=== PATIENT | male | born 1970 | race Hispanic/Latino ===

== ENCOUNTER 2021-09-24 08:04 | Emergency (ER) | payer OTHER ==
[2021-09-24] MEDS ORDERED: ONDANSETRON 4 MG/2 ML INJ IV ONE (08:48)
[2021-09-24] MEDS ORDERED: KETOROLAC 30 MG/1 ML INJ IV ONE (08:48)
[2021-09-24] MEDS ORDERED: MORPHINE 4 MG/1 ML INJ IV ONE (08:48)
[2021-09-24] MEDS ORDERED: SODIUM CHLORIDE 0.9% 1000 ML 1,000 ML IV ONE (08:48)
--- NOTE | 2021-09-24 08:59 | Emergency Department Report ---
ED Abdominal Pain HPI - General Chief Complaint: Abdominal Pain Stated Complaint: LT LOWER ABD PAIN Time Seen by Provider: 09/24/21 08:47 Source: patient Mode of arrival: Ambulatory Limitations: No Limitations - History of Present Illness Initial Comments: 50-year-old male presents to the ER today with complaints of left lower quadrant abdominal pain. Patient states that his symptoms started yesterday. He states that it was mild, but this morning got worse. He states that he has been vomiting since this morning. He also reports chills, and breaking out in sweats. He reports dysuria mainly after urinating and urinary frequency. He denies any diarrhea. His last bowel movement was this morning and normal. Patient admits that he does have a history of kidney stones and he has a known residual kidney stone in his left kidney. He has a urologist at the [place] and is supposed to be scheduled him to have surgery but is not sure of when. He states that this pain feels a little different than his typical kidney stone pain. Typically starts in his left flank and radiates into his left abdomen but this time is mainly located in his left lower quadrant area. MD Complaint: abdominal pain Severity scale (0 -10): 10 - Related Data Previous Rx's Medication Instructions Recorded Last Taken Type HYDROcodone/APAP 7.5-325 [[place] 1 each PO Q6HR PRN #10 tablet 09/24/21 Unknown Rx 7.5/325] Ondansetron [Zofran Odt] 4 mg PO Q8HR #12 tab.rapdis 09/24/21 Unknown Rx Allergies Allergy/AdvReac Type Severity Reaction Status Date / Time aspirin Allergy Anaphylaxis Verified 09/24/21 08:31 ibuprofen [From Motrin] Allergy Anaphylaxis Verified 09/24/21 08:31 ketorolac [From Toradol] Allergy Anaphylaxis Verified 09/24/21 08:31 morphine Allergy Anaphylaxis Verified 09/24/21 08:30 ED Review of Systems ROS: Stated complaint: LT LOWER ABD PAIN Other details as noted in HPI Comment: All other systems reviewed and negative Constitutional: chills, diaphoresis. denies: fever Eyes: denies: eye pain, eye discharge, vision change ENT: denies: ear pain, throat pain Respiratory: denies: cough, shortness of breath, SOB with exertion, SOB at rest, wheezing Cardiovascular: denies: chest pain, palpitations Gastrointestinal: abdominal pain, nausea, vomiting. denies: diarrhea, constipation, hematemesis, melena, hematochezia Genitourinary: dysuria, frequency. denies: urgency, hematuria, discharge, testicular pain, testicular mass Musculoskeletal: denies: back pain, joint swelling, arthralgia Skin: denies: rash, lesions, change in color, change in hair/nails, pruritus Neurological: denies: headache, weakness, numbness, paresthesias, confusion, abnormal gait, vertigo Psychiatric: denies: anxiety, depression, auditory hallucinations, visual hallucinations, homicidal thoughts, suicidal thoughts Hematological/Lymphatic: denies: easy bleeding, easy bruising, swollen glands ED Past Medical Hx - Medications Home Medications: Home Medications Medication Instructions Recorded Confirmed Last Taken Type HYDROcodone/APAP 7.5-325 [[place] 1 each PO Q6HR PRN #10 tablet 09/24/21 Unknown Rx 7.5/325] Ondansetron [Zofran Odt] 4 mg PO Q8HR #12 tab.rapdis 09/24/21 Unknown Rx ED Physical Exam - General Limitations: No Limitations General appearance: alert, in distress, obese - Head Head exam: Present: atraumatic, normocephalic, normal inspection - Neck Neck exam: Present: normal inspection, full ROM. Absent: meningismus - Respiratory Respiratory exam: Present: normal lung sounds bilaterally. Absent: respiratory distress, wheezes, rales, rhonchi - Cardiovascular Cardiovascular Exam: Present: regular rate, normal rhythm, normal heart sounds - GI/Abdominal GI/Abdominal exam: Present: soft, tenderness (Left lower quadrant and left upper quadrant), guarding (Left lower quadrant left upper quadrant). Absent: distended, rebound, rigid - Back Exam Back exam: Present: normal inspection, full ROM, CVA tenderness (L) - Neurological Exam Neurological exam: Present: alert, oriented X3, CN II-XII intact, normal gait - Psychiatric Psychiatric exam: Present: normal affect, normal mood - Skin Skin exam: Present: intact ED Course Vital Signs 09/24/21 09/24/21 08:32 10:30 Temperature 98.4 F Pulse Rate 79 89 Respiratory 18 Rate Blood Pressure 211/108 155/90 [Right] O2 Sat by Pulse 99 Oximetry ED Medical Decision Making - Lab Data Result diagrams: 09/24/21 09:14 09/24/21 09:13 - Radiology Data Radiology results: report reviewed Patient: BRIA JACOBS MR#: [id number] : 1970 Acct:[id number] Age/Sex: 50 / M ADM Date: 09/24/21 Loc: ED Attending Dr: Ordering Physician: MOJGAN PALMER Date of Service: 09/24/21 Procedure(s): CT abdomen pelvis w con Accession Number(s): [id number] cc: MOJGAN PALMER CT abdomen pelvis w con INDICATION: LLQ pain/left flank pain OMNI 300 100 ML. COMPARISON: None TECHNIQUE: Abdominal and pelvic CT exam performed. All CT scans at this location are performed using CT dose reduction for ALARA by means of automated exposure control. FINDINGS: CT ABDOMEN and PELVIS: Lung Bases: No significant abnormality. Liver: No significant abnormality. Biliary: No significant abnormality. Spleen: No significant abnormality. Pancreas: No significant abnormality. Adrenals: No significant abnormality. Kidneys: Scarring in the right lower pole the kidney. Nodular contralateral right kidney consistent with scarring. There is scarring seen within the left lower pole of the kidney. Postoperative clips are seen in the left kidney. There is a 1.9 cm within the left lower pole calyx extending slightly into the renal pelvis. 0.8 cm stone also seen within the left lower pole. There are several punctate nonobstructing left upper pole and one right middle pole punctate nonobstructing right renal calculus. Mild left hydroureteronephrosis. Right ureter is not dilated. No stones seen within the bladder or ureters. No suspicious lesion. Vasculature: No significant abnormality. Bowel: No significant abnormality. Pelvis: No significant abnormality. Osseous Structures: No aggressive osseous lesion. Additional Findings: None IMPRESSION: 1. Mild left hydroureteronephrosis without intraureteral or stones in the bladder. Findings could be related to recently passed stone. 2. There are 2 prominent left lower pole stones with the largest measuring 1.1 cm in the left lower pole calyx and slightly extending into the renal pelvis. There are numerous other left upper pole punctate nonobstructing stones and a single right midpole nonobstructing stone. Signer Name: Solo Dickerson MD Signed: 09/24/2021 11:19 AM Workstation Name: [email or web address] Transcribed By: JOSELUIS Dictated By: Solo Dickerson MD Electronically Authenticated By: Solo Dickerson MD Signed Date/Time: 09/24/21 1119 - Medical Decision Making 1156: Patient resting more comfortably in recliner. He appears to be feeling better. CT scan shows mild hydronephrosis but no ureteral stones possibly passed stone and residual stones within the kidney but no other acute abnormality. Labs reviewed with no significant abnormality. No UTI. Discussed results with patient. He will be given medication for pain and nausea at discharge but recommend that he follows up with his urologist at the [place] and increase his water intake. Patient is not toxic not ill-appearing and not in any significant distress. He is neurologically intact and his gait is normal. His vital signs are stable. Patient was stable at time of discharge. Critical care attestation.: If time is entered above; I have spent that time in minutes in the direct care of this critically ill patient, excluding procedure time. ED Disposition Clinical Impression: Renal colic on left side, Nephrolithiasis Disposition: 01 HOME / SELF CARE / HOMELESS Is pt being admited?: No Does the pt Need Aspirin: No Condition: Stable Instructions: Renal Colic, [id number] Additional Instructions: I recommend that you take the nausea medicine and the pain medication as prescribed. Continue to drink lots of water. Follow-up with your urologist at the [place]. Return to the ER if your symptoms changes or worsens in any way. Prescriptions: HYDROcodone/APAP 7.5-325 [[place] 7.5/325] 1 each PO Q6HR PRN #10 tablet PRN Reason: Pain Ondansetron [Zofran Odt] 4 mg PO Q8HR #12 tab.rapdis Referrals: PRIMARY CARE, [Primary Care Provider] - 3-5 Days Forms: Work/School Release Form(ED) Time of Disposition: 11:47
[2021-09-24] MEDS ORDERED: HYDROmorphone 1 MG/1 ML INJ IV ONE ×2 (09:09→10:26)
[2021-09-24 09:24] LABS: Bilirubin,Urine Negative (Negative); Blood,Urine Trace (Negative); Color,Urine Yellow (Yellow); Urobilinogen,Urine < 2.0 mg/dL (<2.0)
[2021-09-24 10:04] LABS: Basophils # (Auto) 0.2 K/mm3 (0.0-0.1); Basophils % (Auto) 2.4 % (0.0-1.8); Eosinophils % (Auto) 0.3 % (0.0-4.3); Hematocrit 45.5 % (35.5-45.6); Hemoglobin 15.8 gm/dl (11.8-15.2); Lymphocytes # (Auto) 0.9 K/mm3 (1.2-5.4); Lymphocytes % (Auto) 11.2 % (13.4-35.0); Mean Corpuscular HGB Conc 35 % (32-34); Mean Corpuscular Volume 81 fl (84-94); Monocytes # (Auto) 0.4 K/mm3 (0.0-0.8); Monocytes % (Auto) 5.6 % (0.0-7.3); Platelet Count 209 K/mm3 (140-440); Red Blood Count 5.61 M/mm3 (3.65-5.03); Red Cell Distribution Width 14.1 % (13.2-15.2)
[2021-09-24] MEDS ORDERED: diphenhydrAMINE 50 MG/ML VIAL IV ONE (10:26)
[2021-09-24 10:27] LABS: Alanine Aminotransferase 83 units/L (7-56); Albumin 4.7 g/dL (3.9-5); BUN/Creatinine Ratio 21; Blood Urea Nitrogen 21 mg/dL (9-20); Calcium 10.6 mg/dL (8.4-10.2); Hemolysis Index 19
--- NOTE | 2021-09-24 11:23 | Cat Scan Report ---
CT abdomen pelvis w con INDICATION: LLQ pain/left flank pain OMNI 300 100 ML. COMPARISON: None TECHNIQUE: Abdominal and pelvic CT exam performed. All CT scans at this location are performed using CT dose reduction for ALARA by means of automated exposure control. FINDINGS: CT ABDOMEN and PELVIS: Lung Bases: No significant abnormality. Liver: No significant abnormality. Biliary: No significant abnormality. Spleen: No significant abnormality. Pancreas: No significant abnormality. Adrenals: No significant abnormality. Kidneys: Scarring in the right lower pole the kidney. Nodular contralateral right kidney consistent w ith scarring. There is scarring seen within the left lower pole of the kidney. Postoperative clips ar e seen in the left kidney. There is a 1.9 cm within the left lower pole calyx extending slightly into the renal pelvis. 0.8 cm stone also seen within the left lower pole. There are several punctate nono bstructing left upper pole and one right middle pole punctate nonobstructing right renal calculus. Mi ld left hydroureteronephrosis. Right ureter is not dilated. No stones seen within the bladder or uret ers. No suspicious lesion. Vasculature: No significant abnormality. Bowel: No significant abnormality. Pelvis: No significant abnormality. Osseous Structures: No aggressive osseous lesion. Additional Findings: None IMPRESSION: 1. Mild left hydroureteronephrosis without intraureteral or stones in the bladder. Findings could be related to recently passed stone. 2. There are 2 prominent left lower pole stones with the largest measuring 1.1 cm in the left lower p ole calyx and slightly extending into the renal pelvis. There are numerous other left upper pole punc mendez nonobstructing stones and a single right midpole nonobstructing stone. Signer Name: Solo Dickerson MD Signed: 09/24/2021 11:19 AM Workstation Name: [id number]
[2021-09-24 12:31] VITALS: BP 150/92
== END 2021-09-24 12:31 | disposition home or self-care (01) ==
LOC: ED 08:04
DX: N20.0 Calculus of kidney (principal); N23 Unspecified renal colic; Z88.6 Allergy status to analgesic agent; Z88.8 Allergy status to other drugs, medicaments and biological substances; Z79.899 Other long term (current) drug therapy
CPT/HCPCS: 36415; 74177; 80053; 81001; 83690; 83735; 85025; 96361; 96374; 96375; 96376; 99284; J1170; J1200; J1885; J2270; J2405; J7030; Q9967; Q0162